=== PATIENT | male | born 1940 | race Caucasian/White ===

== ENCOUNTER 2019-05-11 14:18 | Emergency (ER) | payer OTHER ==
[~2019-05-11] VITALS: Ht 177.8 cm; Wt 81.0 kg
[2019-05-11] MEDS ORDERED: NORVASC 2.5 MG2.5 M1 PO (14:33)
[2019-05-11] MEDS ORDERED: ESCITALOPRA5 MG/5 ML PO (14:35)
[2019-05-11] MEDS ORDERED: NAMENDA 10 MG T10 MG PO (14:38)
[2019-05-11] MEDS ORDERED: VALPROIC A250 MG/51 PO ×2 (14:38→14:46)
[2019-05-11] MEDS ORDERED: AMANTADINE 100100 MG PO (14:39)
[2019-05-11 14:40] LABS: HEMATOCRIT 42.2 % (42.0-52.0); HEMOGLOBIN 13.8 gm/dL (14.0-18.0); MCH 27.5 pg (26.0-34.0); MCHC 32.7 g/dL (28.0-37.0); MCV 84.1 fL (80.0-100.0); PLATELET COUNT 175 thou/uL (150-400); RBC 5.01 mil/uL (4.50-6.00); RDW 14.5 % (10.5-14.5); WBC 4.6 thou/uL (4.0-11.0)
[2019-05-11] MEDS ORDERED: CHLORPROMAZINE50 M2 PO (14:40)
[2019-05-11] MEDS ORDERED: ARICEPT10 M1 PO (14:42)
[2019-05-11] MEDS ORDERED: REMERON15 M2 PO (14:43)
[2019-05-11 14:54] LABS: ANION GAP 8 mmol/L (7-16); BUN 20 mg/dL (7-18); CHLORIDE 102 mmol/L (98-107); CO2 30 mmol/L (21-32); CREATININE 1.2 mg/dL (0.7-1.3); GLUCOSE 117 mg/dL (74-106); SODIUM 140 mmol/L (136-145)
[2019-05-11 15:03] LABS: TROPONIN-I <0.06 ng/mL (<0.06)
[2019-05-11 15:04] LABS: ABSOLUTE NEUTROPHILS 2.2 thou/uL (1.4-8.2); ANISOCYTOSIS 1+
[2019-05-11 17:23] VITALS: BP 127/73
--- NOTE | 2019-05-12 07:55 | EKG ---
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1940 Requested By: Jose Lozano Order Number: [id number] MD: Herb Yu Measurements Intervals [place] Rate: 72 P: 62 MS: 33 QRS: -82 QRSD: 126 T: 83 QT: 419 QTc: 459 Interpretive Statements Atrial-sensed ventricular-paced complexes No further analysis attempted due to paced rhythm Artifact in lead(s) I,II,aVR,V1,V2,V3 No previous ECG available for comparison Electronically Signed On 05-12-2019 7:54:16 CDT by Herb Yu [email or web address] <ELECTRONICALLY SIGNED> By: Herb Yu MD, [facility] 05/12/19 0754 1442 1442 Herb Yu MD, [facility] /EPI
== END 2019-05-11 17:24 | disposition home or self-care (01) ==
LOC: ER 14:18
PROVIDERS: Emergency Medicine
DX: S09.90XA Unspecified injury of head, initial encounter (principal); I10 Essential (primary) hypertension; E78.5 Hyperlipidemia, unspecified; Z88.5 Allergy status to narcotic agent; Z88.0 Allergy status to penicillin; Z79.899 Other long term (current) drug therapy; W01.0XXA Fall on same level from slipping, tripping and stumbling without subsequent striking against object, initial encounter; Y93.89 Activity, other specified; Y92.89 Other specified places as the place of occurrence of the external cause; Y99.9 Unspecified external cause status

== ENCOUNTER 2019-10-22 08:21 | Inpatient (IN) | payer OTHER ==
[~2019-10-22] VITALS: Ht 180.3 cm; Wt 67.6 kg
[~2019-10-22 08:21] MED LIST: AMANTADINE 100100 MG PO; ARICEPT10 M1 PO; CHLORPROMAZINE50 M2 PO; ESCITALOPRA5 MG/5 ML PO; NAMENDA 10 MG T10 MG PO; NORVASC 2.5 MG2.5 M1 PO; REMERON15 M2 PO; VALPROIC A250 MG/51 PO
[2019-10-22 08:23] VITALS: BP 122/83
[2019-10-22 08:51] LABS: ABSOLUTE NEUTROPHILS 6.1 thou/uL (1.4-8.2); BASOPHILS 0.5 % (0.0-2.0); EOSINOPHILS 1.6 % (0.0-3.0); HEMATOCRIT 54.8 % (42.0-52.0); HEMOGLOBIN 17.5 gm/dL (14.0-18.0); LYMPHOCYTES 19.4 % (24.0-44.0); MCH 27.4 pg (26.0-34.0); MCV 85.7 fL (80.0-100.0); MONOCYTES 8.7 % (1.0-8.0); PLATELET COUNT 170 thou/uL (150-400); POLYS 69.8 % (36.0-66.0); RBC 6.39 mil/uL (4.50-6.00); RDW 16.8 % (10.5-14.5); WBC 8.7 thou/uL (4.0-11.0)
[2019-10-22 09:12] LABS: URINE BLOOD NEGATIVE (Negative); URINE CLARITY CLEAR; URINE COLOR YELLOW; URINE GLUCOSE-RANDOM* NEGATIVE (Negative); URINE KETONES TRACE (Negative); URINE LEUKOCYTES-REFLEX NEGATIVE (Negative); URINE NITRITE-REFLEX NEGATIVE (Negative); URINE PROTEIN (DIPSTICK) TRACE (Negative); URINE SPECIFIC GRAVITY >= 1.030 (1.005-1.035)
[2019-10-22 09:13] LABS: ALBUMIN 3.2 g/dL (3.4-5.0); ANION GAP 10 mmol/L (7-16); BUN 36 mg/dL (7-18); CALCIUM 9.1 mg/dL (8.5-10.1); CHLORIDE 121 mmol/L (98-107); CO2 32 mmol/L (21-32); CREATININE 1.1 mg/dL (0.7-1.3); GLUCOSE 107 mg/dL (74-106); MAGNESIUM 2.9 mg/dL (1.8-2.4); POTASSIUM 3.9 mmol/L (3.5-5.1); SGOT 52 U/L (15-37); SGPT 42 U/L (30-65); TOTAL BILIRUBIN 0.5 mg/dL (0.2-1.0); TOTAL PROTEIN 8.6 g/dL (6.4-8.2); TROPONIN-I <0.06 ng/mL (<0.06)
[2019-10-22 09:15] LABS: SODIUM 163 mmol/L (136-145)
[2019-10-22 09:26] LABS: AMP/METHAMP Negative (Negative); BARBITURATES Negative (Negative); BENZODIAZEPINES Negative (Negative); COCAINE Negative (Negative); METHADONE Negative (Negative); OPIATES Negative (Negative); PCP Negative (Negative)
[2019-10-22 09:35] LABS: ICTOTEST (BILI CONFIRMATORY) Negative (Negative); URINE BILIRUBIN NEGATIVE (Negative)
[2019-10-22 09:45] LABS: PLATELET ESTIMATE NORMAL
[2019-10-22 10:20] VITALS: BP 121/58
[2019-10-22 10:54] VITALS: BP 114/66
[2019-10-22 11:13] VITALS: BP 121/78
[2019-10-22 15:21] VITALS: BP 109/92
--- NOTE | 2019-10-22 15:30 | NUR ---
PATIENT ARRIVED FROM ED VIA STRECHER, SLEEPY, AND ANSWER WHEN CALLED BY HIS NAME. ALERT TO SELF ONLY AND CONFUSED ABOUT PLACE AND TIME. S/B DR HELLER. ADMISION COMPLETED AND POC INTIATED. VSS, VPACED ON THE MONITOR AND WILL CONTINUE TO MONITOR.
[2019-10-22 19:18] VITALS: BP 113/70
[2019-10-23 00:12] VITALS: BP 114/73
--- NOTE | 2019-10-23 03:13 | NUR ---
Assumed pt care at 0300 from RN. Pt is sleeping and resting comfortably. No sign of distress noted in pt. Conitnue to monitor pt. No acute events overnight. No further needs at this time.
--- NOTE | 2019-10-23 03:14 | NUR ---
ASSUMED CARE OF PATIENT AT 1900. VSS, AFEBRILE. SLEEPING THROUGH THE NIGHT. INCONTINENT OF URINE. ALERT TO SELF ONLY. FLUIDS INFUSING TO BRING SODIUM DOWN. WORKING TOWARDS POC GOALS.
[2019-10-23 03:40] VITALS: BP 117/75
[2019-10-23 05:25] LABS: CREATININE 1.1 mg/dL (0.7-1.3); MAGNESIUM 2.3 mg/dL (1.8-2.4)
[2019-10-23 05:32] LABS: ABSOLUTE NEUTROPHILS 3.6 thou/uL (1.4-8.2); BASOPHILS 0.3 % (0.0-2.0); HEMATOCRIT 43.7 % (42.0-52.0); LYMPHOCYTES 30.1 % (24.0-44.0); MCH 27.1 pg (26.0-34.0); MCHC 31.4 g/dL (28.0-37.0); MCV 86.1 fL (80.0-100.0); PLATELET COUNT 133 thou/uL (150-400); POLYS 56.6 % (36.0-66.0); RBC 5.07 mil/uL (4.50-6.00); RDW 16.6 % (10.5-14.5); WBC 6.4 thou/uL (4.0-11.0)
[2019-10-23 05:58] LABS: HEMOGLOBIN 13.7 gm/dL (14.0-18.0)
[2019-10-23 06:04] LABS: POTASSIUM 2.9 mmol/L (3.5-5.1)
--- NOTE | 2019-10-23 07:39 | EKG ---
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[place] : 1940 Requested By: Paco Redman Order Number: [id number] MD: Herb Yu Measurements Intervals [place] Rate: 122 P: 66 NM: 143 QRS: -90 QRSD: 190 T: 85 QT: 437 QTc: 623 Interpretive Statements Marked baseline artifact limits interpretation Probable ventricular pacing Compared to ECG 05/11/2019 14:42:58 Intrinsic depolarizations are now present Electronically Signed On 10-23-2019 7:38:51 CDT by Herb Yu [email or web address] <ELECTRONICALLY SIGNED> By: Herb Yu MD, [facility] 10/23/19 0738 1012 1012 Herb Yu MD, [facility] /EPI
--- NOTE | 2019-10-23 07:41 | EKG ---
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1940 Requested By: Oniel Baird Order Number: [id number] MD: Herb Yu Measurements Intervals [place] Rate: 89 P: 35 DE: 43 QRS: 256 QRSD: 120 T: 73 QT: 385 QTc: 469 Interpretive Statements Ventricular-paced complexes No further analysis attempted due to paced rhythm Artifact in lead(s) I,II,III,aVR,aVL,aVF,V1,V2,V3 Compared to ECG 05/11/2019 14:42:58 No significant change was found Electronically Signed On 10-23-2019 7:41:36 CDT by Herb Yu [email or web address] <ELECTRONICALLY SIGNED> By: Herb Yu MD, [facility] 10/23/19 0741 7 7 Herb Yu MD, [facility] /EPI
[2019-10-23 08:15] VITALS: BP 13/61
--- NOTE | 2019-10-23 13:30 | NUR ---
CM COMPLETED THE INITIAL ASSESSMENT TO DISCUSS D/C PLANNING. CM DID NOT MEET W/ PT D/T DEMENTIA DX AND BEING "APHASIC" PER CHART DOCUMENTATTION. CM SPK W/HORTENSIA IN ADMISSION AT [facility], PT OKAY TO RETRUN TO FACILITY. PT SON/FANNY STATED PT IS ON WAITING LIST FOR [facility], WHICH WOULD BE CLOSER TO HIM, HE LIVES IN [place]. PT IS INDEPENDENT W/MOBILTY. HAS 0 DMES. PT IS DEPENDENT WITH ADLS; PT IS ABLE TO FEED HIMSELF. THE FACILITY MANAGES PT'S MEDICATION. [facility] WILL ARRANGE TRANSPORTATION AT D/C/ THERE IS A CONSULT FOR PALLIATIVE CARE. CM TO CONT TO FOLLOW.
--- NOTE | 2019-10-23 15:28 | NUR ---
ASSUMED CARE TA SHIFT CHANGE, ALERT TO SELF ONLY, AND FOLLOWS SOME COMMANDS. VSS AND SR ON THE MONITOR. PATIENT PULLED IV X2 TODAY AND DR PATE NOTIFIED. NEW IV RFA BY IV TEAM. RESTING IN BED AT THIS TIME. AND WILL CONTINUE TO MONITOR.
--- NOTE | 2019-10-23 16:32 | NUR ---
Dr Muse sp with son Deon and first cousin Angelica Giordano . He reports son plan return to [facility]. THey wanted a referral to [place] correction near [place]ica Giordano who helps with decisions. Sp with Angelica Giordano who lives in [place]. she reports she is working with Ruth Ann Guerrero from [facility] and patient has been a list for years for facility. She reports it took some time for [facility] to send records to them. She reports she wants him to another facility than [facility] but she is financial POA, Discussed with Angelica Giordano now that they have records something might move faster. She should also have Deon reach out to [facility] since he is medical POA to determine if wants to pursue transfer to another facility. Plan return to [facility] once stable.
[2019-10-23 16:45] VITALS: BP 128/66
[2019-10-23 17:42] VITALS: BP 130/70
--- NOTE | 2019-10-23 19:25 | NUR ---
PT ARRIVED ON UNIT CONFUSED. PT WAS FOUND ON THE FLOOR BY IT TRAINEE AND ANOTHER NURSE. PT DENIES PAIN, NO SKIN BREAKDOWN NOTED. DR. PATE CALLED, RECEIVED ORDER FOR HALDOL. PT PULLED IV OUT, NO IV ACCESS AT THIS TIME. PT MOVED CLOSER TO NURSING STATION, NURSE PUT YELLOW SOCKS ON PT. BED IS LOW, FALL PRECAUTION PLACED. WILL CONTINUE TO MONITOR.
--- NOTE | 2019-10-23 23:16 | NUR ---
OUTGOING CLIF ALEXANDER RECEIVED ORDERS FOR 1:[address] SCHWARTZ ORDER NOT ENTERED. PT HAS HAD 1:1 CARE SINCE SHIFT CHANGE.STILL NEEDS IT.
--- NOTE | 2019-10-24 03:18 | NUR ---
ASSUMED PT CARE AT AROUND 1915 HRS. PT AGITATED , CONFUSED AND COMBATIVE. DAY SHIFT CIGARETTE MACHINES MECHANIC WAS STAYING IN ROOM ONE ON ONE.PT OBSERVED TRYING TO GET TO THE FOOT OF THE BED AND PROPELLING SELF OUT OF BED. PO AND IM ORDERS RECEIVED. PATIENT WAS ABLE TO TAKE THE PO MEDS CRUSHED AND IN PUDDING, AFTERWARDS, PT CALMED DOWN, PIV STARTED AND IV HALDOL GIVEN. IV FLUIDS ALSO STARTED. PT IS INCONTINENT.SITTER IN ROOM. VSS.FALL PREC IN PLACE.
[2019-10-24 08:05] VITALS: BP 110/56
[2019-10-24 11:41] LABS: HEMATOCRIT 43.1 % (42.0-52.0); HEMOGLOBIN 13.9 gm/dL (14.0-18.0); MCH 27.4 pg (26.0-34.0); MCHC 32.3 g/dL (28.0-37.0); MCV 84.9 fL (80.0-100.0); RBC 5.08 mil/uL (4.50-6.00); RDW 16.5 % (10.5-14.5); WBC 6.1 thou/uL (4.0-11.0)
[2019-10-24 11:51] LABS: CALCIUM 7.9 mg/dL (8.5-10.1); CREATININE 0.9 mg/dL (0.7-1.3); POTASSIUM 3.7 mmol/L (3.5-5.1)
--- NOTE | 2019-10-24 13:33 | NUR ---
ON-GOING ASSESSMENT: CM REVIEWED CHART. PALLIATIVE CARE WAS CONSULTED FOR PATIENT AND AWAITING RECOMMENDATIONS. PT PULLED OUT HIS IV LINE THIS AM AND HAD TO BE PLACED IN RESTRAINTS. ANDREA SPOKE WITH PATIENTS LISA ESCOBEDO [phone] AND HE IS AGREEABLE WITH PT DISCHARGING BACK TO [facility] ONCE MEDICALLY STABLE ( PATIENT IS ALSO ON A WAITING LIST FOR [facility]). IF PATIENT IS MEDICALLY STABLE TO DISCHARGE OVER THE WEEKEND CONTACT THE D.O.N AT [facility] DEREKIREOziel AT [phone] AND NOTIFY HIM OF DISCHARGE. DISCHARGE ORDERS/SUMMARY WILL NEED TO BE FAXED TO [phone]. NUMBER FOR REPORT IS [phone]. CHART COPY WILL NEED TO BE SENT WITH PATIENT AND NOTIFY DPOA PRIOR TO DISCHARGE. [facility] AT [facility] WILL ARRANGE TRANSPORATION.
[2019-10-24 17:30] VITALS: BP 120/71
--- NOTE | 2019-10-24 18:46 | NUR ---
Assumed care of pt. at 0700. Pt. was combative and confused at beginning of shift. He tore his IV out in frustration. A new IV was placed and failed patency shortly there after. IV team came and placed a new IV on the R. forearm and wrapped it in coban. A sitter was in place for the duration of the shift. Fall precautions in place.
[2019-10-24 19:30] VITALS: BP 127/74
--- NOTE | 2019-10-25 01:52 | NUR ---
PT ASSESSED AT START OF SHIFT ALERT TO SELF. NIGHT MEDS GIVEN CRUSHED IN APPLE SAUCE AND PT KIANA IT WELL. PT CALM AND COOPERATIVE THIS SHIFT SLEPT THROUGH THE NIGHT. 1:1 SITTER BY BEDSIDE. INCONTINENT OF URINE. IV INTACT AND FLUIDS INFUSING. FALL PREC IN PLACE AND WILL CONT TO MONITOR.
[2019-10-25 05:29] LABS: HEMATOCRIT 41.6 % (42.0-52.0); HEMOGLOBIN 13.4 gm/dL (14.0-18.0); MCH 27.3 pg (26.0-34.0); MCHC 32.2 g/dL (28.0-37.0); MCV 84.8 fL (80.0-100.0); RBC 4.91 mil/uL (4.50-6.00); RDW 16.2 % (10.5-14.5); WBC 3.6 thou/uL (4.0-11.0)
[2019-10-25 05:45] LABS: CALCIUM 8.3 mg/dL (8.5-10.1); CREATININE 0.9 mg/dL (0.7-1.3); MAGNESIUM 2.2 mg/dL (1.8-2.4); POTASSIUM 3.4 mmol/L (3.5-5.1)
[2019-10-25 06:16] VITALS: BP 123/68
[2019-10-25 10:09] VITALS: BP 121/66
[2019-10-25 15:13] VITALS: BP 121/57
--- NOTE | 2019-10-25 17:01 | NUR ---
Assumed care of pt. 0700. Pt. was initially very calm but nonverbal. Pt. refused to open his mouth to edna potassium pill. Pt. became violent and agressive towards the end of the shift when ROLLER PRINTING SUPERVISOR's tried to perform a bed change. It was noted that he had 2 back to back BMs with visible blood. Physician was notified, sample was taken, and sent to lab for Occult Test. Fall precautions in place as well as sitter.
[2019-10-25 20:38] VITALS: BP 120/77
--- NOTE | 2019-10-26 00:29 | NUR ---
PT ASSESSED AT START OF SHIFT. PT VERY RESTLESS AND TRYING TO GET UP. EVENING MEDS GIVEN CRUSHED IN APPLE SAUCE PT KIANA IT WELL. SITTER BY BEDSIDE. BED CHANGED DUE TO INCONTINENT. IV INTACT WITH IVF. FALL PREC IN PLACE AND WILL CONT TO MONITOR.
[2019-10-26 05:42] LABS: HEMATOCRIT 40.1 % (42.0-52.0); MCH 27.3 pg (26.0-34.0); MCHC 32.4 g/dL (28.0-37.0); MCV 84.3 fL (80.0-100.0); RBC 4.76 mil/uL (4.50-6.00); RDW 15.8 % (10.5-14.5); WBC 4.3 thou/uL (4.0-11.0)
[2019-10-26 05:52] LABS: CALCIUM 7.8 mg/dL (8.5-10.1); CREATININE 0.8 mg/dL (0.7-1.3); MAGNESIUM 2.1 mg/dL (1.8-2.4); POTASSIUM 3.1 mmol/L (3.5-5.1)
[2019-10-26 06:29] VITALS: BP 112/63
[2019-10-26 08:05] VITALS: BP 115/67
--- NOTE | 2019-10-26 12:43 | NUR ---
PT CARE ASSUMED AT 0700. A&O TO SELF. MEDS CRUSHED W. APPLESAUCE. IV PATENT WITH NO REDNESS OR EDEMA, IV FLUIDS INFUSING. Q2 TURNS. FEEDER. OCCULT BLOOD POS. CONTINUE TO MONITOR H&H. CONTINUE TO ENCOURAGE FLUIDS. SITTER IN ROOM. PT WILL ATTEMPT TO PULL IV OUT.IV WRAPPED WITH KOBAN. FALL PROTOCOL IN PLACE. ALL FOUR RALES UP. ICONTINENT TO BOWEL AND BLADDER. CALL LIGHT IN PLACE. WILL CONTINUE TO MONITOR.
[2019-10-26 15:46] VITALS: BP 113/67
[2019-10-26 19:20] VITALS: BP 125/80
--- NOTE | 2019-10-27 02:57 | NUR ---
PT WAS RESTLESS AT THE START OF SHIFT. PT WAS INCONTINENT. HE WAS CLEANED AND BEDTIME MEDICATION GIVEN CRUSHED IN APPLE SAUCE. PT THEN WENT TO SLEEP. AFEBRILE. ON ROOM AIR. IVF INFUSING. SITTER BY BEDSIDE.
[2019-10-27 05:27] LABS: HEMATOCRIT 40.9 % (42.0-52.0); HEMOGLOBIN 13.4 gm/dL (14.0-18.0); MCH 27.3 pg (26.0-34.0); MCHC 32.6 g/dL (28.0-37.0); MCV 83.7 fL (80.0-100.0); RBC 4.89 mil/uL (4.50-6.00); RDW 16.1 % (10.5-14.5); WBC 5.1 thou/uL (4.0-11.0)
[2019-10-27 05:39] LABS: CREATININE 0.7 mg/dL (0.7-1.3); MAGNESIUM 2.1 mg/dL (1.8-2.4); POTASSIUM 3.4 mmol/L (3.5-5.1)
[2019-10-27 06:52] VITALS: BP 122/62
--- NOTE | 2019-10-27 08:00 | NUR ---
SITTER DISCONTINUED PER DR. PATE. PT CALM WITH MILD AGITATION MANAGED WELL WITH MEDICATION. NO IMPULSIVE EPISODES.
--- NOTE | 2019-10-27 12:57 | NUR ---
PT CARE ASSUMED AT 0700. A& ORIENTED TO SELF. SITTER DC'D FOR POTENTIAL DISCHARGE TOMORROW PER DR. PATE. PT LAYING CALM IN BED WITH NO EPISODES OF IMPULSIVNESS. MINIMAL AGITATION WITH PRN MEDS ON BOARD. IV PATENT WITH NO REDNESS OR EDEMA, FLUIDS INFUSING. FALL PROTOCOL IN PLACE. PACEMAKER. Q2 TURNS. BED BATH GIVEN. POTASSIUM LOW AT 3.1 REPLACEMENT GIVEN WILL RECHECK. WILL CONTINUE TO MONITOR. MEDS CRUSHED WITH APPLESAUCE. CONTINUE TO ENCOURAGE FLUIDS. POOR NUTRITION. CALL LIGHT IN REACH.
[2019-10-27 16:19] VITALS: BP 91/64
[2019-10-27 20:35] VITALS: BP 129/66
--- NOTE | 2019-10-28 02:56 | NUR ---
Assumed care on 10/27/19 @ 19:30, anxiety noted, putting legs over the bed rails, assisted patient back into bed with staff assistance x 2. Incontinent care given x2 assist. Agitation noted, uncooperative with care, hitting and kicking staff. Accepted crushable meds in [facility], @ 23:56, order obtained for IM Lorazepam after refused P.O. Lorazepam, displaying violent hitting and kicking behaviors with attempts to deliver incontinent care. After receiving IM, with x3 staff assistance, calmed and was provided incontinent care with x3 staff assistance. Will continue to monitor as per protocol for patient safety and comfort. Bed in low position.
[2019-10-28 04:36] VITALS: BP 145/83
[2019-10-28 05:10] LABS: HEMATOCRIT 41.7 % (42.0-52.0); HEMOGLOBIN 13.7 gm/dL (14.0-18.0); MCH 27.4 pg (26.0-34.0); MCHC 32.8 g/dL (28.0-37.0); MCV 83.6 fL (80.0-100.0); RBC 4.98 mil/uL (4.50-6.00); RDW 15.9 % (10.5-14.5); WBC 4.9 thou/uL (4.0-11.0)
[2019-10-28 05:24] LABS: CALCIUM 8.4 mg/dL (8.5-10.1); CREATININE 0.6 mg/dL (0.7-1.3); MAGNESIUM 2.1 mg/dL (1.8-2.4); POTASSIUM 3.6 mmol/L (3.5-5.1)
[2019-10-28 08:40] VITALS: BP 111/70
[2019-10-28] MEDS ORDERED: DEPAKOTE 250MG250 M1 PO (15:46)
--- NOTE | 2019-10-28 15:50 | NUR ---
ON-GOING ASSESSMENT: CM REVIEWED CHART AND SPOKE WITH ATTENDING. PT IS MEDICALLY STABLE TO DISCHARGE TO [facility] TODAY IF FACILITY CAN ACCEPT. CM LEFT MULTIPLE VM WITH ADMISSONS BUT THEN WAS TOLD THAT ADMISSIONS [facility] IS NOT IN TODAY AND TO CONTACT DIRECTOR OR NURSING. CM LEFT VM X2 FOR [facility]. CM SPOKE WITH LATEXER WHO STATES SHE WOULD CONTINUE TO TRY TO REACH [facility]. LATEXER REPORTS THAT [facility] STATED THEY COULD TAKE PATIENT TODAY WITH COVID TEST PENDING AND RESULTS WILL JUST NEED TO BE FAXED ON RECEIVED. [facility] IS ARRANGING TRANSPORTATION AND FAXING ORDERS WELL NOTIFYING DPOA.
--- NOTE | 2019-10-28 16:44 | NUR ---
PT DISCHARGING TODAY TO [facility] FAXED DC ORDERS/SUMMARY TO FACILITY SPOKE WITH [facility] HARDIN) AT FACILITY HE RECEIVED ORDERS. THEY DO NOT PROVIDE TRANSPORTATION SO DP ARRANGED TRANSPORT BY STRETCHER VAN WITH [facility] TRIP# [id number]. NOTIFIED PT'S DPOA (FANNY) OF DC AND TIME OF TRANSPORT. UNIT NOTIFIED AND CHART COPY PER US. RN TO CALL REPORT TO [phone].
--- NOTE | 2019-10-28 17:24 | NUR ---
ASSUMED CARE OF PATIENT AT SHIFT CHANGE. ASSESSMENT CHARTED. MEDS GIVEN PER MAR. VSS. PRN THORAZINE GIVEN FOR AGITATION. PATIENT IMPROVED W LESS COMBATIVENESS THROUGHOUT DAY. APPETITE WAS POOR. VOIDED WELL. TRANFERRED TO FACILITY AT APPROX 1700.
[2019-10-28 17:27] VITALS: BP 105/66
== END 2019-10-28 17:28 | DRG 682 ==
LOC: ER 08:21 → 2N 09:53 → EROBS 09:53 → 2N 10:56 → 4S 10-23 15:53
PROVIDERS: Emergency Medicine; Nurse Practitioner; ADMIT Internal Medicine; ATTEND Internal Medicine
DX: N17.9 Acute kidney failure, unspecified (principal); G93.41 Metabolic encephalopathy; E87.0 Hyperosmolality and hypernatremia; R47.01 Aphasia; F03.91 Unspecified dementia, unspecified severity, with behavioral disturbance; F05 Delirium due to known physiological condition; E87.1 Hypo-osmolality and hyponatremia; I10 Essential (primary) hypertension; E87.6 Hypokalemia; Z20.828 Contact with and (suspected) exposure to other viral communicable diseases; F41.9 Anxiety disorder, unspecified; F32.9 Major depressive disorder, single episode, unspecified; Z95.0 Presence of cardiac pacemaker; Z79.899 Other long term (current) drug therapy; Z88.0 Allergy status to penicillin; Z88.8 Allergy status to other drugs, medicaments and biological substances; Z86.73 Personal history of transient ischemic attack (TIA), and cerebral infarction without residual deficits
CPT/HCPCS: 10081; 10102

== ENCOUNTER 2019-11-02 20:10 | Emergency (ER) | payer OTHER ==
[~2019-11-02] VITALS: Ht 182.9 cm; Wt 68.0 kg
[~2019-11-02 20:10] MED LIST changes: +DEPAKOTE 250MG250 M1 PO
[2019-11-02 20:59] LABS: URINE BILIRUBIN 2+ (Negative); URINE BLOOD TRACE (Negative); URINE CLARITY CLEAR; URINE COLOR YELLOW; URINE GLUCOSE-RANDOM* NEGATIVE (Negative); URINE KETONES 1+ (Negative); URINE LEUKOCYTES-REFLEX NEGATIVE (Negative); URINE NITRITE-REFLEX NEGATIVE (Negative); URINE PROTEIN (DIPSTICK) TRACE (Negative); URINE SPECIFIC GRAVITY >= 1.030 (1.005-1.035)
[2019-11-02 21:00] LABS: ABSOLUTE NEUTROPHILS 3.2 thou/uL (1.4-8.2); BASOPHILS 0.4 % (0.0-2.0); EOSINOPHILS 1.2 % (0.0-3.0); HEMATOCRIT 42.4 % (42.0-52.0); HEMOGLOBIN 13.7 gm/dL (14.0-18.0); LYMPHOCYTES 22.8 % (24.0-44.0); MCH 27.4 pg (26.0-34.0); MCHC 32.4 g/dL (28.0-37.0); MCV 84.5 fL (80.0-100.0); MONOCYTES 9.1 % (1.0-8.0); PLATELET COUNT 277 thou/uL (150-400); POLYS 66.5 % (36.0-66.0); RBC 5.02 mil/uL (4.50-6.00); RDW 16.2 % (10.5-14.5); WBC 4.8 thou/uL (4.0-11.0)
[2019-11-02 21:02] LABS: ICTOTEST (BILI CONFIRMATORY) Positive (Negative)
[2019-11-02 21:09] LABS: AMP/METHAMP Negative (Negative); BARBITURATES Negative (Negative); BENZODIAZEPINES Negative (Negative); COCAINE Negative (Negative); METHADONE Negative (Negative); OPIATES Negative (Negative); PCP Negative (Negative)
[2019-11-02 21:11] LABS: ANION GAP 11 mmol/L (7-16); BUN 10 mg/dL (7-18); CALCIUM 8.7 mg/dL (8.5-10.1); CHLORIDE 108 mmol/L (98-107); CO2 28 mmol/L (21-32); CREATININE 0.9 mg/dL (0.7-1.3); GLUCOSE 119 mg/dL (74-106); POTASSIUM 3.3 mmol/L (3.5-5.1); SODIUM 147 mmol/L (136-145)
[2019-11-02 21:22] LABS: ALBUMIN 2.6 g/dL (3.4-5.0); SGOT 35 U/L (15-37); SGPT 21 U/L (30-65); TOTAL BILIRUBIN 0.5 mg/dL (0.2-1.0); TOTAL PROTEIN 7.3 g/dL (6.4-8.2); TROPONIN-I <0.06 ng/mL (<0.06)
[2019-11-02] MEDS ORDERED: KEFLEX500 M1 PO (22:36)
[2019-11-02] MEDS ORDERED: MEMANTINE HCL10 MG PO (23:12)
[2019-11-02] MEDS ORDERED: AMANTADINE100 M1 PO (23:13)
[2019-11-02] MEDS ORDERED: ARICEPT10 MG PO (23:14)
[2019-11-02] MEDS ORDERED: DESYREL150 MG PO (23:15)
[2019-11-02] MEDS ORDERED: VALPROIC ACID250 MG PO (23:15)
[2019-11-02] MEDS ORDERED: LOVENOX40 MG/0.4 (23:16)
[2019-11-03 00:03] VITALS: BP 124/82
--- NOTE | 2019-11-03 08:12 | EKG ---
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1940 Requested By: Paco Redman Order Number: [id number] MD: Jonathan Shaw Measurements Intervals [place] Rate: 74 P: 81 [place]: 160 QRS: 264 QRSD: 146 T: 56 QT: 415 QTc: 461 Interpretive Statements Atrial-sensed ventricular-paced complexes No further analysis attempted due to paced rhythm Baseline wander in lead(s) I,II,aVR Compared to ECG 10/22/2019 10:12:45 No significant changes Electronically Signed On 11-03-2019 8:12:34 CDT by Jonathan Shaw [email or web address] <ELECTRONICALLY SIGNED> By: Jonathan Shaw MD 11/03/19811 45 45 Jonathan Shaw MD /EPI
== END 2019-11-03 00:03 ==
LOC: ER 20:10
PROVIDERS: Emergency Medicine
DX: S01.112A Laceration without foreign body of left eyelid and periocular area, initial encounter (principal); S80.212A Abrasion, left knee, initial encounter; F03.90 Unspecified dementia, unspecified severity, without behavioral disturbance, psychotic disturbance, mood disturbance, and anxiety; Z95.0 Presence of cardiac pacemaker; Z79.899 Other long term (current) drug therapy; Z88.0 Allergy status to penicillin; Z88.8 Allergy status to other drugs, medicaments and biological substances; W19.XXXA Unspecified fall, initial encounter; Y93.89 Activity, other specified; Y92.89 Other specified places as the place of occurrence of the external cause; Y99.8 Other external cause status

== ENCOUNTER 2020-02-27 19:59 | Emergency (ER) | payer OTHER ==
[~2020-02-27] VITALS: Ht 162.6 cm; Wt 62.0 kg
--- NOTE | ~2020-02-27 | EMS ---
[facility] [address] [place] [address] EMS Patient Care Report Name: ARIAN MAIN Room #: REG HOMAR Galvan#: [id number] Admission: 02/27/20 Attend Phys: Discharge: Date of : 40 Report #: [id number] THIS REPORT FOR: //name// Report Transmitted: 02/27/2020 19:35 EMS Care Summary [place], [place]/[facility] Incident [id number] @ 02/27/2020 19:27 Incident Location [id number] [place] [address] Patient ARIAN MAIN Male, 79 Years 1940 Patient Address [id number] [place], [place] [id number] Patient History Dementia,Hypertension (HTN),Anxiety, Patient Allergies Penicillin allergy,Demerol, Patient Medications Mirtazapine, Divalproex Sodium, Chief Complaint LAC ABOVE R EYEBROW, SMAL LAC BRIDGE IF NOSE Disposition Transported No Lights/[place] Reason Falls Transported To [facility] Narrative UPON ARRIVAL PT SUPINE IN BED CONSCIOUS BUT ALTERED. NURSE STATES PT FELL FORWARD OUT OF WHEELCHAIR HITTING HEAD ON GROUND. PT HAS INJURIES ALREADY BANDAGED UP. NURSE STATES PT HAS A LAC OVER THE R BROW, SMALL LAC ON NOSE AND [facility] [address] [place] [address] EMS Patient Care Report Name: ARIAN MAIN Room #: REG HOMAR Galvan#: [id number] Admission: 02/27/20 Attend Phys: Discharge: Date of : 40 Report #: [id number] SKIN TEAR TO L ELBOW. NURSE UNSURE ABOUT POSSIBLE LOC AND STATED PT DID THROW UP ONCE. PT IS NORMALLY ALTERED DUE TO DEMENTIA AND CAN OCASSIONALLY ANSWER QUESTIONS BUT USUALLY NOT. NURSE STATES PT SEEMS MORE TIRED THAN USUAL BUT HIS CURRENT LOC CAN BE NORMAL SOMETIMES. PT DOES APPEAR TO WINCE WHEN MOVING/ PALPATING SHOULDERS. PT LIFTED TO COT AND TRANSPORTED TO [facility] Initial Vitals @19:54P: 76,BP: 127/83,CO: 0,SpO2: 94, @19:46P: 81,R: 16,BP: 122/84,Pain: 2/10,GCS: 10,SpO2: 95,Revised Trauma: 11, Assessments @19:40MENTAL:No Abnormalities,SKIN:HEENT:Head/Face: No Abnormalities,LUNG SOUNDS:General: No Abnormalities,ABDOMEN:General: No Abnormalities,PELVIS//GI:EXTREMITIES:Left Arm: No Abnormalities,Right Arm: No Abnormalities,Left Leg: No Abnormalities,Right Leg: No Abnormalities,PULSE:Radial: 2+ Normal,NEURO:No Abnormalities, Impression Injury of Head Procedures @19:40ALS AssessmentResponse: UnchangedSucceeded@19:45Spinal Motion RestrictionResponse: UnchangedSucceeded Timeline 19:25,Call Received 19:25,Dispatch Notified 19:27,Dispatched 19:30,En Route 19:35,On Scene 19:39,At Patient 19:40,ALS Assessment,Response: UnchangedSucceeded, 19:45,Spinal Motion Restriction,Response: UnchangedSucceeded, 19:46,BP: 122/84 M,PULSE: 81,RR: 16 R,SPO2: 95 Ox,ETCO2: ,BG: ,PAIN: 2,GCS: 10, 19:48,Depart Scene 19:54,BP: 127/83 M,PULSE: 76,RR: R,SPO2: 94 Ox,ETCO2: ,BG: ,PAIN: ,GCS: , 19:56,At Destination 20:13,Call Closed Disclaimer v1.1 Copyright 2020 [employer] This EMS Care Summary contains data elements from the applicable legal record (which may be displayed differently). It is designed to provide pertinent information for the following purposes: continuity of care, clinical quality, and state data reporting. The complete legal record is available to ED staff and administrators of the receiving hospital in [facility]'s Patient Tracker. All data [address] [address] EMS Patient Care Report Name: ARIAN MAIN Room #: REG HOMAR Galvan#: [id number] Admission: 02/27/20 Attend Phys: Discharge: Date of : 40 Report #: [id number] is provided "as is."
[~2020-02-27 19:59] MED LIST changes: +AMANTADINE100 M1 PO; +ARICEPT10 MG PO; +DESYREL150 MG PO; +KEFLEX500 M1 PO; +LOVENOX40 MG/0.4; +MEMANTINE HCL10 MG PO; +VALPROIC ACID250 MG PO
[2020-02-28 01:15] VITALS: BP 127/67
== END 2020-02-27 23:55 | disposition home or self-care (01) ==
LOC: ER 19:59
DX: S01.81XA Laceration without foreign body of other part of head, initial encounter (principal); Z95.0 Presence of cardiac pacemaker; Z88.0 Allergy status to penicillin; Z88.8 Allergy status to other drugs, medicaments and biological substances; W05.0XXA Fall from non-moving wheelchair, initial encounter; Y93.89 Activity, other specified; Y92.89 Other specified places as the place of occurrence of the external cause; Y99.8 Other external cause status

== ENCOUNTER 2020-03-04 09:55 | Inpatient (IN) | payer OTHER ==
[~2020-03-04] VITALS: Ht 180.3 cm; Wt 72.6 kg
[2020-03-04 09:56] VITALS: BP 113/68
--- NOTE | 2020-03-04 10:29 | EKG ---
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1940 Requested By: Renaldo Bill Order Number: [id number] MD: Gian Broussard Measurements Intervals [place] Rate: 85 P: 0 ID: 52 QRS: -84 QRSD: 136 T: 76 QT: 429 QTc: 511 Interpretive Statements Ventricular-paced complexes No further analysis attempted due to paced rhythm Artifact in lead(s) I,II,III,aVR,aVL,aVF,V1,V2 Compared to ECG 11/02/2019 21:46:20 Atrial-sensed ventricular-paced complex(es) or rhythm no longer present Electronically Signed On 03-04-2020 10:29:39 TERADATA SOLUTION ARCHITECT by Gian Broussard [email or web address] <ELECTRONICALLY SIGNED> By: Gian Broussard MD, FACC 03/04/20 1029 1012 1012 Gian Broussard MD, FAC /EPI
[2020-03-04 10:36] LABS: URINE BLOOD NEGATIVE (Negative); URINE CLARITY CLEAR; URINE COLOR YELLOW; URINE GLUCOSE-RANDOM* NEGATIVE (Negative); URINE KETONES NEGATIVE (Negative); URINE LEUKOCYTES-REFLEX NEGATIVE (Negative); URINE NITRITE-REFLEX NEGATIVE (Negative); URINE PROTEIN (DIPSTICK) NEGATIVE (Negative); URINE SPECIFIC GRAVITY >= 1.030 (1.005-1.035)
[2020-03-04 10:44] LABS: ICTOTEST (BILI CONFIRMATORY) Negative (Negative); URINE BILIRUBIN NEGATIVE (Negative)
[2020-03-04 10:46] LABS: HEMATOCRIT 50.9 % (42.0-52.0); HEMOGLOBIN 15.6 gm/dL (14.0-18.0); MCHC 30.6 g/dL (28.0-37.0); RBC 5.78 mil/uL (4.50-6.00); RDW 16.2 % (10.5-14.5); WBC 4.2 thou/uL (4.0-11.0)
[2020-03-04 10:48] LABS: ALBUMIN 2.8 g/dL (3.4-5.0); CALCIUM 9.2 mg/dL (8.5-10.1); CREATININE 1.4 mg/dL (0.7-1.3); POTASSIUM 3.3 mmol/L (3.5-5.1); TOTAL BILIRUBIN 0.5 mg/dL (0.2-1.0); TOTAL PROTEIN 6.6 g/dL (6.4-8.2)
[2020-03-04 11:21] LABS: BE(vivo) 4.3 mmol/L (-2 to +3); HCO3 27.6 mmol/L (22.0-26.0); sO2 96.8 % (92.0-98.0)
[2020-03-04 11:34] LABS: PLATELET COUNT 120 thou/uL (150-400); PLATELET ESTIMATE NORMAL
[2020-03-04 21:25] VITALS: BP 111/58
[2020-03-04 21:30] VITALS: BP 108/33
--- NOTE | 2020-03-04 21:30 | NUR ---
RECIEVED PT FROM ED WITH AMS , PT EYES OPEN BUT NON-VERBAL, INFORMED FROM ED THAT IT THE PT BASELINE. NOTED LACERTION WITH SUTURE AT RIGHT EYEBROW CLEAN DRY AND INTACT, NOTED ALSO ABRASION ON KAUFMAN AND KNEES. RESOURCE SPECIALIST PLACED SHOWS VPACED. SCARAL AND COCCYX AREA INTACT WITHOUT REDNESS OR BREAKDOWN. IV FLUIDS INFUSING WELL. WILL CONITNUE WITH CURRENT PLAN OF CARE AND WILL REPORT CHANGES.
[2020-03-04 21:33] VITALS: BP 122/68
[2020-03-05 03:24] VITALS: BP 139/117
[2020-03-05 05:59] LABS: HEMATOCRIT 45.4 % (42.0-52.0); HEMOGLOBIN 13.7 gm/dL (14.0-18.0); MCH 26.8 pg (26.0-34.0); MCHC 30.2 g/dL (28.0-37.0); MCV 88.6 fL (80.0-100.0); RBC 5.12 mil/uL (4.50-6.00); RDW 16.5 % (10.5-14.5); WBC 5.4 thou/uL (4.0-11.0)
[2020-03-05 06:09] LABS: CALCIUM 8.6 mg/dL (8.5-10.1); CREATININE 1.2 mg/dL (0.7-1.3); POTASSIUM 3.1 mmol/L (3.5-5.1)
[2020-03-05 07:51] VITALS: BP 122/58
--- NOTE | 2020-03-05 09:38 | NUR ---
Nutrition: Vitamin D 17.8. REC order vitamin D supplementation.
--- NOTE | 2020-03-05 11:07 | NUR ---
CARE ASSUMED 0700, PT BARELY RESPONDS PAINFUL STIMULI. UNABLE TO ASSSESS PAIN OR OREINTATION. PT IS ON ROOM AIR, NO SIGNS OF DISTRESS NOTED PT IS INCONTINENT, CLEAN UP NEEDED. FALL PRECAUTIONS IN PLACE. WILL CONTINUE TO MONITOR.
--- NOTE | 2020-03-05 11:37 | NUR ---
79 year old male patient who presented with altered mental status from [facility]. He has dementia and was found unresponsive. He was found to have Hypernatremia and he is on IV fluids. He is unable to provide hx. He is DNR/DNI. Patient is COVID positive per PCR on 03-04-20. Per records lists Angelica Millan (Cousin) as family/next of kin and notification at [phone]. However notes from admission has listed Deon Gandara (son) at [phone] as DPOA for the patient. Notified Registration. Spoke with Dr. Harris and states given lack of continued PO that persists that upon his conversation with Angelica Millan the decision with this and the new COVID diagnosis to go to comfort care. Called Deon Gandara and explained above who is an agreement. States he knows his father would never want to be on any type of life support and is in full agreement with his cousin Angelica to continue with Comfort measures. The I spoke with Angelica Millan and she is in the process of looking for arrangements/cremation as she lives in [facility] and Son Deon lives in [place]. Gave her the number of Dima at [phone]. Will follow up with family.
[2020-03-05 12:08] VITALS: BP 110/67
--- NOTE | 2020-03-05 12:52 | NUR ---
WOUND CONSULT; CONSULTED TO SEE THIS PATIENT WHO HAD A FALL. THE PATIENTS WOUND HAS BEEN SUTURED. THE SUTURE LINE IS INTACT. THE RN TODAY STATES POSSIBLE D/C. NO S/S OF INFECTION. RECOMMENDATION; PAINT WITH BETADINE, DAILY DISCUSSED WITH RN, I WILL SIGN OFF AT THIS TIME.
--- NOTE | 2020-03-05 15:36 | NUR ---
Called back to speak Angelica and she states that son Deon Gandara son and DPOA at [phone] is taking care of arrangements. Called and spoke with Deon who states he has contacted [facility] at [phone]. States he spoke with Stephanie and I contacted Stephanie and she states to have nursing staff contact this number when patient should pass and they will take care of everything from there. [facility] [address] [address] Spoke with nurse Mantilla and informed of above.
[2020-03-05 15:37] VITALS: BP 109/72
--- NOTE | 2020-03-05 17:54 | NUR ---
PT ON COMFORT CARE NOW. PT CONTINUES TO ONLY RESPOND TO PAIN. UNABLE TO OPEN EYES AND NONVERBAL. PT REPOSITION NEEDED. ORAL CARE COMPLETED, BED CHANGED. PT SEEMS TO BE COMFORTABLE IVETH. WILL CONTINUE TO MONITOR.
[2020-03-05 20:17] VITALS: BP 109/70
--- NOTE | 2020-03-06 06:14 | NUR ---
PT WAS MOVED TO COMFORT CARE 03/05. TRANSFER ADMISSION STATUS CHANGED TO MED SURG STATUS. HOURLY ROUNDING.
[2020-03-06 07:44] VITALS: BP 124/65
--- NOTE | 2020-03-06 18:47 | NUR ---
RN ASSUMED PT'S CARE AT 0700AM,PT STARTS COMFORT CARE TODAY, PT OPENS HIS EYES BY VOICE, BUT PT IS UNVERBAL AND PT CANNOT FOLLOW COMMANDS, PT 'S ORAL CARE AND SKIN CARE HAVE DONE, PT IS RELAXING, NO PAIN.
--- NOTE | 2020-03-06 19:02 | NUR ---
PT'S FAMILY ROOM SERVICE WAITER ABOUT 1850PM, RN HAS GIVING PT AND FAMILY DISCHAGE TEACHING , THEY UNDERSTAND WELL.
[2020-03-06 20:07] VITALS: BP 126/73
--- NOTE | 2020-03-07 04:10 | NUR ---
PT LYING IN BED. INCONTINENT. NON RESPONSIVE. COMFORT CARE. FREQUENT OBSERVATION.
[2020-03-07 07:39] VITALS: BP 129/78
--- NOTE | 2020-03-07 18:40 | NUR ---
RN ASSUMED PT'S CARE AT 0700AM, PT IS UNRESPONSE TO VOICE , PT IS CONTINUING COMFORT CARE , PT'S ORAL CARE AND SKIN CARE HAVE DONE, PT IS SLEEPING AT MOST OF TIME, PT'S HAS FACE TIME WITH PT.
== END 2020-03-08 00:40 | DRG 177 ==
LOC: ER 09:55 → EROBS 12:21 → 3W 16:31
PROVIDERS: Emergency Medicine; ADMIT Hospitalist; ATTEND Hospitalist
DX: U07.1 COVID-19 (principal); E43 Unspecified severe protein-calorie malnutrition; G93.41 Metabolic encephalopathy; N17.9 Acute kidney failure, unspecified; E87.0 Hyperosmolality and hypernatremia; E87.6 Hypokalemia; R41.82 Altered mental status, unspecified; R62.7 Adult failure to thrive; E86.0 Dehydration; G30.9 Alzheimer's disease, unspecified; F02.80 Dementia in other diseases classified elsewhere, unspecified severity, without behavioral disturbance, psychotic disturbance, mood disturbance, and anxiety; Z51.5 Encounter for palliative care; Z66 Do not resuscitate; Z95.0 Presence of cardiac pacemaker; Z88.0 Allergy status to penicillin; Z79.899 Other long term (current) drug therapy; Z88.8 Allergy status to other drugs, medicaments and biological substances; Z68.22 Body mass index [BMI] 22.0-22.9, adult; Z86.73 Personal history of transient ischemic attack (TIA), and cerebral infarction without residual deficits
CPT/HCPCS: 10080; 10879